=== PATIENT | female | born 1945 | race Caucasian/White ===

== ENCOUNTER 2016-09-30 08:45 | Emergency (ER) | payer MEDICARE, OTHER ==
[~2016-09-30] VITALS: Ht 165.1 cm; Wt 72.3 kg
[~2016-09-30 08:45] MED LIST: AMIT10TA PO; ESTR0.3T PO; OXYC1TAB7 PO
[2016-09-30 08:46] VITALS: BP 130/72
== END 2016-09-30 11:05 | disposition home or self-care (01) ==
LOC: ED 10:50
DX: S89.92XA Unspecified injury of left lower leg, initial encounter (principal); M25.462 Effusion, left knee; G47.30 Sleep apnea, unspecified; X58.XXXA Exposure to other specified factors, initial encounter; Y93.11 Activity, swimming; Y92.89 Other specified places as the place of occurrence of the external cause; Y99.8 Other external cause status
CPT/HCPCS: 29505

== ENCOUNTER 2017-04-17 09:39 | Emergency (ER) | payer MEDICARE, OTHER ==
[~2017-04-17] VITALS: Ht 165.1 cm; Wt 71.3 kg
[2017-04-17 09:56] VITALS: BP 108/66
== END 2017-04-17 13:27 | disposition home or self-care (01) ==
LOC: ED 13:21
DX: Z53.21 Procedure and treatment not carried out due to patient leaving prior to being seen by health care provider (principal)

== ENCOUNTER 2017-04-19 08:09 | Emergency (ER) | payer MEDICARE, OTHER ==
[~2017-04-19] VITALS: Ht 165.1 cm; Wt 71.3 kg
[2017-04-19 08:11] VITALS: BP 137/77
== END 2017-04-19 09:55 | disposition home or self-care (01) ==
LOC: ED 09:05
DX: J20.8 Acute bronchitis due to other specified organisms (principal)
CPT/HCPCS: 71046; 99284